=== PATIENT | female | born 1995 | race African-American/Black ===

== ENCOUNTER 2020-11-15 13:32 | Emergency (ER) | payer SELFPAY ==
[~2020-11-15] VITALS: Ht 167.6 cm; Wt 65.0 kg
[2020-11-15] MEDS ORDERED: LIDOCAINE HCL/PF 1% 10 MG/ML 5ML VIAL IJ NR (15:15)
[2020-11-15] MEDS ORDERED: BACITRACIN ZINC OINT UDPKT TOP NR (15:15)
[2020-11-15 15:24] VITALS: BP 134/79
== END 2020-11-15 15:25 | disposition home or self-care (01) ==
LOC: ER 13:32
DX: Z48.02 Encounter for removal of sutures (principal); Z48.00 Encounter for change or removal of nonsurgical wound dressing
CPT/HCPCS: 96374; 99283; J3490